=== PATIENT | female | born 1945 | race Caucasian/White ===

== ENCOUNTER 2019-03-26 17:32 | Emergency (ER) | payer OTHER ==
[~2019-03-26] VITALS: Ht 157.5 cm; Wt 79.4 kg
[2019-03-26] MEDS ORDERED: GLUCOPHAGE1000 MG PO (17:45)
[2019-03-26] MEDS ORDERED: LIPITOR 40 MG T40 M1 PO (17:46)
[2019-03-26] MEDS ORDERED: NORVASC5 M1 PO (17:46)
[2019-03-26] MEDS ORDERED: ASA81BEC PO (17:46)
[2019-03-26] MEDS ORDERED: VICTOZA0.6 MG/0.1 SUBQ (17:46)
[2019-03-26] MEDS ORDERED: NORCO 5-325 TA1 EAC1 PO (18:10)
[2019-03-26 18:12] LABS: ABSOLUTE BASOPHILS 0.1 thou/uL (0.0-0.2); ABSOLUTE EOSINOPHILS 0.4 thou/uL (0.0-0.7); ABSOLUTE LYMPHOCYTES 2.1 thou/uL (0.8-5.3); ABSOLUTE MONOCYTES 0.4 thou/uL (0.0-1.2); BASOPHILS 1.3 %; EOSINOPHILS 6.1 %; HEMATOCRIT 37.7 % (37.0-47.0); HEMOGLOBIN 13.1 gm/dL (12.0-15.0); LYMPHOCYTES 30.1 %; MCH 29.5 pg (26.0-34.0); MCHC 34.6 g/dL (28.0-37.0); MCV 85.1 fL (80.0-100.0); MONOCYTES 5.5 %; MPV 7.5 fl. (7.2-11.1); NUCLEATED RBCS 0 /100WBC; PLATELET COUNT* 273 thou/uL (150-400); RBC 4.43 mil/uL (4.20-5.00); RDW-CV 14.1 % (10.5-14.5)
[2019-03-26 18:21] LABS: CALCIUM 9.5 mg/dL (8.5-10.1); CREATININE 0.7 mg/dL (0.6-1.3); POTASSIUM 3.2 mmol/L (3.5-5.1)
[2019-03-26 18:24] LABS: APTT 24.8 Seconds (25.0-31.3)
[2019-03-26 18:34] LABS: ALBUMIN 4.1 g/dL (3.4-5.0); CK-MB MASS 0.6 ng/mL (<0.5-3.6); MAGNESIUM 1.6 mg/dL (1.8-2.4); TOTAL BILIRUBIN 0.7 mg/dL (<0.1-1.0); TOTAL PROTEIN 8.2 g/dL (6.4-8.2)
[2019-03-26 18:55] VITALS: BP 159/82
--- NOTE | 2019-03-27 14:03 | EKG ---
[place] [address] ELECTROCARDIOGRAM REPORT Name: IVANNA AKBAR Room: [facility]#: [id number] Admission: 03/26/19 Attend Phys: Discharge: 03/26/19 Date of : 47 Report #: [id number] THIS REPORT FOR: //name// [facility] ED Test Date: 2019-03-26 Test Time: 17:40:49 Pat Name: IVANNA AKBAR Department: Room: Gender: F Evp General Counsel: GOLD : 1945 Requested By: Jarek Mata Order Number: [id number] MD: Pola Jameson Measurements Intervals [place] Rate: 69 P: 0 [place]: 76 QRS: -11 QRSD: 106 T: 19 QT: 420 QTc: 450 Interpretive Statements Sinus rhythm Low voltage, precordial leads No previous ECG available for comparison Electronically Signed On 03-27-2019 14:03:01 [employer]IL [employer]IC by Pola Jameson [email or web address] <ELECTRONICALLY SIGNED> By: Pola Jameson MD, [facility] 03/27/19 1403 1740 1740 Pola Jameson MD, FACC /EPI
== END 2019-03-26 18:58 | disposition home or self-care (01) ==
LOC: M.ERS 17:32
PROVIDERS: Family Medicine
DX: M25.561 Pain in right knee (principal); R07.9 Chest pain, unspecified; I10 Essential (primary) hypertension; E11.9 Type 2 diabetes mellitus without complications

== ENCOUNTER 2019-04-01 16:13 | Emergency (ER) | payer OTHER ==
[~2019-04-01] VITALS: Ht 157.5 cm; Wt 79.4 kg
[~2019-04-01 16:13] MED LIST: ASA81BEC PO; GLUCOPHAGE1000 MG PO; LIPITOR 40 MG T40 M1 PO; NORCO 5-325 TA1 EAC1 PO; NORVASC5 M1 PO; VICTOZA0.6 MG/0.1 SUBQ
[2019-04-01] MEDS ORDERED: NABUMETONE 750750 M1 PO (16:35)
[2019-04-01] MEDS ORDERED: NORCO 5-325 TA1 EAC1 PO (16:35)
[2019-04-01 17:37] VITALS: BP 136/78
== END 2019-04-01 17:38 | disposition home or self-care (01) ==
LOC: M.ERS 16:13
DX: M25.561 Pain in right knee (principal); G89.29 Other chronic pain; I10 Essential (primary) hypertension; E11.9 Type 2 diabetes mellitus without complications; M19.90 Unspecified osteoarthritis, unspecified site